=== PATIENT | female | born 1960 | race Caucasian/White ===

== ENCOUNTER 2018-06-11 06:45 | Observation (INO) | payer SELFPAY ==
[2018-06-11 07:25] LABS: #Eosinphils 0.2 thou/uL (0.0-0.7); #Lymphocytes 1.3 thou/uL (1.20-3.40); #Monocytes 0.2 thou/uL (0.11-0.59); #Neutrophils 2.3 thou/uL (1.40-6.50); %Basophils 0.2 % (0.0-1.0); %Eosinophils 4.9 % (0.0-10.0); %Lymphocytes 32.2 % (21.0-51.0); %Monocytes 5.9 % (0.0-10.0); %Neutrophils 56.8 % (42.0-75.0); Hemoglobin 11.9 g/dL (12.0-16.0); Mean Corpuscular HGB CONC 32.7 g/dL (32.0-36.0); Mean Corpuscular Hemoglobin 29.9 pg (27.0-31.0); Mean Corpuscular Volume 91.4 fL (78.0-98.0); Mean Platelet Volume 7.4 fL (7.4-10.4); Platelet Count 152 thou/uL (130-400); RBC Distribution Width 13.2 % (11.5-14.5); Red Blood Cell (RBC) Count 3.98 mill/uL (4.20-5.40)
--- NOTE | 2018-06-11 07:46 | RAD ---
CHEST 1 VIEW: Date: 06/11/18 INDICATION: Chest pain. COMPARISON: None. FINDINGS: Lungs are clear. Cardiomediastinal silhouette is within normal limits. No acute osseous abnormality i s evident. IMPRESSION: No acute cardiopulmonary abnormality. POS: JULIETTE
[2018-06-11 07:47] LABS: ALT (SGPT) 45 U/L (8-55); AST (SGOT) 42 U/L (5-34); Albumin 3.6 g/dL (3.5-5.0); Alkaline Phosphatase 56 U/L (40-150); Anion Gap 13 mmol/L (10-20); BUN (Urea Nitrogen) 15 mg/dL (9.8-20.1); Bilirubin, Total 0.4 mg/dL (0.2-1.2); CK (CPK) 51 U/L (29-168); Calc. Creatinine Clearance 0 mL/min (70-130); Carbon Dioxide 21 mmol/L (22-29); Chloride 109 mmol/L (98-107); Estimated GFR-MDRD 67; Globulin 3.2 g/dL (2.4-3.5); Glucose 137 mg/dL (70-105); Potassium 4.2 mmol/L (3.5-5.1); Protein, Total 6.8 g/dL (6.0-8.3); Sodium 139 mmol/L (136-145)
[2018-06-11 07:50] LABS: CKMB 1.2 ng/mL (0-6.6); Troponin I Less than 0.010 ng/mL (< 0.028)
[2018-06-11] MEDS ORDERED: Nitroglycerin 0.4 MG TAB (25 Tab Bottle) ONE (09:05)
--- NOTE | 2018-06-11 09:29 | CT ---
CT PULMONARY ANGIOGRAM WITH IV CONTRAST AND 3D POSTPROCESSING: Date: 06/11/18 HISTORY: Chest pain and shortness of breath. Dizziness. Nausea. Patient also reports a history of uterine canc er. FINDINGS: There is good contrast opacification of the pulmonary arterial vasculature without filling defects to suggest pulmonary embolism. Thoracic aorta is also well opacified without aneurysm or dissection. No pleural or pericardial effusions are seen. No pneumothoraces or focal areas of consolidation identif ied. There is a 4.0 mm nodule in the posterior aspect of the left upper lobe (image 35, series 3). Th ere are mild dependent changes in the lung bases. There are mild degenerative changes in the spine. A hiatal hernia is present. IMPRESSION: 1. No CT evidence of pulmonary embolism. 2. 4.0 mm left upper lobe lung nodule. A follow-up CT scan of the chest without contrast is recommen ded in 3 months. 3. Hiatal hernia. CODE T. CODE LN. POS: OFF
--- NOTE | 2018-06-11 09:49 | RAD ---
RADIOGRAPH CHEST 1 VIEW: Supine DATE: 06-11-18 TIME: 8:28 A.M. HISTORY: 58-year-old female status post central line placement. FINDINGS: There is no air space density or pulmonary edema. The lateral costophrenic angles are sharp. Supine positioning makes this study insensitive for pneumothorax detection. The only interval change compare d to 06-11-18 at 6:56 a.m. is a new right IJ central line with distal tip overlying the right atrium. IMPRESSION: 1. No acute pulmonary findings. 2. Status post right internal jugular central venous catheter placement with distal tip overlying the right atrium. godwin POS: QUINN
[2018-06-11 10:36] LABS: Troponin I Less than 0.010 ng/mL (< 0.028)
[2018-06-11] MEDS ORDERED: ISOVUE-370 76%-LOCM 1 ML ONE (11:59)
[2018-06-11 13:36] LABS: Troponin I Less than 0.010 ng/mL (< 0.028)
[2018-06-11] MEDS ORDERED: Acetaminophen 325 MG TAB PO PRN (14:31)
[2018-06-11] MEDS ORDERED: Ondansetron ODT 4 MG TAB SL PRN (14:31)
[2018-06-11] MEDS ORDERED: Ondansetron PF 4 MG/2 ML Vial IVP PRN ×2 (14:31→16:59)
[2018-06-11 14:32] VITALS: BMI 27.9
[2018-06-11] MEDS ORDERED: hydrALAZINE 20 MG/ML VIAL SLOW IVP PRN (16:59)
[2018-06-11] MEDS ORDERED: Acetaminophen 500 MG TAB PO PRN (16:59)
[2018-06-11] MEDS ORDERED: Ondansetron ODT 4 MG TAB PO PRN (16:59)
[2018-06-11] MEDS: Ketorolac Tromethamine 30 MG/ML VIAL IVP SCH (17:26)
[2018-06-11] MEDS: Famotidine 20 MG TAB PO SCH (19:59)
[2018-06-12] MEDS: Ketorolac Tromethamine 30 MG/ML VIAL IVP SCH ×3 (00:09→11:51)
[2018-06-12 07:03] LABS: ALT (SGPT) 54 U/L (8-55); AST (SGOT) 58 U/L (5-34); Albumin 3.3 g/dL (3.5-5.0); Alkaline Phosphatase 58 U/L (40-150); Anion Gap 10 mmol/L (10-20); BUN (Urea Nitrogen) 15 mg/dL (9.8-20.1); Bilirubin, Total 0.5 mg/dL (0.2-1.2); Calc. Creatinine Clearance 90 mL/min (70-130); Calcium 8.8 mg/dL (7.8-10.44); Carbon Dioxide 26 mmol/L (22-29); Chloride 106 mmol/L (98-107); Estimated GFR-MDRD 67; Glucose 87 mg/dL (70-105); Potassium 4.6 mmol/L (3.5-5.1); Protein, Total 6.3 g/dL (6.0-8.3); Sodium 137 mmol/L (136-145)
[2018-06-12 07:34] LABS: Hemoglobin 11.6 g/dL (12.0-16.0); Mean Corpuscular HGB CONC 34.2 g/dL (32.0-36.0); Mean Corpuscular Volume 90.7 fL (78.0-98.0); Mean Platelet Volume 7.6 fL (7.4-10.4); Platelet Count 172 thou/uL (130-400); RBC Distribution Width 13.1 % (11.5-14.5); Red Blood Cell (RBC) Count 3.74 mill/uL (4.20-5.40); White Blood Cell (WBC) Count 3.9 thou/uL (4.8-10.8)
[2018-06-12 08:20] LABS: Band 2 % (5-11); Eosinophils 8 % (0-10); Lymphocytes 36 % (21-51); MDiff Complete? YES; Monocytes 2 % (0-10); Neutrophil 50 % (42-75); RBC Morphology Normal; Reactive Lymphocytes 2 % (0-10)
[2018-06-12] MEDS: Famotidine 20 MG TAB PO SCH (08:52)
[2018-06-12] MEDS ORDERED: Lisinopril 20 MG TAB PO SCH (09:00)
[2018-06-12] MEDS ORDERED: Aspirin 81 mg Enteric Coated Tablet PO SCH (09:00)
[2018-06-12 12:25] VITALS: BP 166/80; TEMP 98
--- NOTE | 2018-06-14 18:31 | DIS ---
DATE OF ADMISSION: 06/11/2018 DATE OF DISCHARGE: 06/12/2018 DISCHARGE DIAGNOSES: 1. Chest pain, musculoskeletal in origin. 2. Hypertension, labile. 3. Chronic normocytic anemia. CONSULTATIONS: None. PERTINENT LAB AND X-RAY FINDINGS: Basic metabolic profile within normal limits. AST ranged between 42 to 58 and ALT ranged between 45 to 54. Troponin I negative x3. CBC showed a hemoglobin ranging between 11.6 to 11.9 and MCV 91. D-dimer 0.84. Portable chest x-ray dated 06/11/2018, showed no acute cardiopulmonary process. CT angiogram of the chest dated 06/11/2018, showed no evidence for pulmonary embolus. A 4 mm left upper lobe nodule noted. Hiatal hernia. HOSPITAL COURSE: The patient was observed on the telemetry unit after initially presenting with left-sided chest pain. Exam findings showed point tenderness along the anterior lower rib cage with reproducible symptoms consistent with the patient's presentation. Serial cardiac biomarkers were negative x3 and telemetry monitoring showed sinus mechanism without acute arrhythmia or dysrhythmia. The patient was treated with IV Toradol and supportive management with overall improvement and symptomatology. Overall, the patient remained clinically stable during the hospital course. I have examined and discussed followup instructions with the patient at the time of discharge who verbalized understanding and in agreement. The patient overall clinically stable and ready for discharge on 06/12/2018. DISCHARGE MEDICATIONS: 1. Enteric-coated aspirin 81 mg 1 tab p.o. daily. 2. Lisinopril 40 mg p.o. daily. 3. Metoprolol-XL 100 mg p.o. b.i.d. FOLLOWUP: The patient will follow up with her primary care provider when establishing care in the [place] area after discharge. CONDITION ON DISCHARGE: Stable. ACTIVITY: Ad yariel. DIET: Heart healthy. CODE STATUS: Full. DISPOSITION: Home on 06/12/2018. Job ID: [id number]
--- NOTE | 2018-06-14 19:07 | HP ---
PRIMARY CARE PROVIDER: CHIEF COMPLAINT: Chest pain. HISTORY OF PRESENT ILLNESS: This is a 58-year-old female, who presents to [facility] Emergency Department and transferred from [facility], where the patient is a current resident. The patient admitted to left lower chest wall pain, which began in the last 24 to 48 hours. The patient admitted to some left arm discomfort worse when rotating her torso and walking up stairs. The patient had some associated dizziness, nausea and shortness of breath. The patient denied any documented fever, chills, vomiting or diarrhea. The patient denied any recent increased activity level, recent trauma, injury, or increasing cough. The patient denied any known personal history of coronary artery disease. The patient initially stated that the pain was 5/10, sharp in the lower left chest wall area. The patient did not take any home remedies for relief of her symptoms. In the emergency room, the patient underwent general evaluation, including chest imaging, which was unremarkable. The patient received sublingual nitroglycerin and aspirin 324 mg and referred to the Hospitalist Service for admission. PAST MEDICAL HISTORY: 1. Polysubstance abuse with history of IV drug use. 2. Questionable history of coronary artery disease. 3. Hypertension, treated. PAST SURGICAL HISTORY: 1. Status post right arm tumor removal. 2. Status post left knee surgery. 3. Status post hysterectomy. CURRENT MEDICATIONS: 1. Lisinopril 40 mg p.o. daily. 2. Metoprolol 100 mg p.o. b.i.d. 3. Enteric-coated aspirin 81 mg daily. ALLERGIES: TO PENICILLIN. FAMILY HISTORY: Mother with history of uterine cancer. SOCIAL HISTORY: The patient currently resides at [facility]. History of polysubstance abuse with IV drug use. Former tobacco use, none currently. No alcohol currently. REVIEW OF SYSTEMS: , otherwise negative except as stated per HPI. PHYSICAL EXAMINATION: VITAL SIGNS: On admission, blood pressure 140/86, pulse 71, respiratory rate 20, temperature 97 degrees Fahrenheit, and O2 saturation 97% on room air. GENERAL APPEARANCE: This is a 58-year-old female, alert and oriented x3, pleasant, conversant, and in no acute distress. HEENT: Pupils are equal, round and reactive to light and accommodation. Extraocular muscles were intact. No scleral icterus. No conjunctival injection. Nares patent. OP is clear. Teeth in fair repair. NECK: Supple. No cervical adenopathy. No thyromegaly. No carotid bruits. Right internal jugular central venous catheter in place. No meningeal signs appreciated. CHEST: Lungs are clear to auscultation bilaterally. CARDIOVASCULAR: S1 and S2 without noted murmur, rub or gallop. Positive tenderness to palpation of the anterior and lateral lower chest wall at the costal margin. No discoloration or ecchymosis noted. ABDOMEN: Rounded, soft, nontender and nondistended. Bowel sounds are positive in all four quadrants. There is no hepatosplenomegaly. No abdominal bruits. No rebound or guarding appreciated. EXTREMITIES: Warm and dry with fair turgor. No clubbing, cyanosis or asymmetric edema appreciated. Pulses palpable distally at the dorsalis pedis, posterior tibial, and popliteal arteries bilaterally. Capillary refill is less than 2 seconds. NEUROLOGIC: Cranial nerves 2 through 12 are grossly intact. No focal or lateralizing signs appreciated. PERTINENT LAB AND X-RAY FINDINGS: Sodium 139, potassium 4.2, chloride 109, CO2 of 21. BUN 15, creatinine 0.86. Glucose 137, calcium 9.0. AST 42, ALT of 45, alkaline phosphatase 56. Total CK of 51. Troponin I negative x3. CBC showed a white blood cell count of 4.0, hemoglobin 12, and hematocrit 36, and platelet count 152. D-dimer 0.84. Portable chest x-ray dated 06/11/2018, showed no acute cardiopulmonary process. CT angiogram of the chest dated 06/11/2018, showed no evidence for acute pulmonary embolus. A 4-mm left upper lobe nodule noted. Hiatal hernia. EKG dated 06/11/2018, by my interpretation shows sinus mechanism with heart rates in the 80s. Attenuated R-waves noted in the precordial leads. No acute ST-T wave changes appreciated. ASSESSMENT AND PLAN: 1. Chest pain. The patient will be observed on the telemetry unit. Exam findings consistent with musculoskeletal origin of chest pain. We will continue supportive management. Cardiac biomarkers negative x3. Trial of Toradol 30 mg IV every 6 hours. General supportive management. 2. Hypertension. Resume home antihypertensive regimen and monitor clinical response. 3. Coronary artery disease. Question of coronary artery disease without medical records for review. We will continue supportive management. No current evidence to suggest acute coronary syndrome. Resume aspirin 81 mg daily. 4. Polysubstance abuse. Stable currently. We will transfer back to [facility] on discharge. 5. Prophylaxis. Sequential compression devices while in bed. Pepcid 20 mg p.o. b.i.d. 6. Code status is full. Surrogate medical decision maker is the patient's daughter. Job ID: [id number]
--- NOTE | 2018-06-15 14:59 | EKG ---
Test Reason : Blood Pressure : / mmHG Vent. Rate : 084 BPM Atrial Rate : 084 BPM P-R Int : 140 ms QRS Dur : 068 ms QT Int : 378 ms P-R-T Axes : 068 019 037 degrees QTc Int : 446 ms Normal sinus rhythm Septal infarct , age undetermined Abnormal ECG Confirmed by MARIANO MACKENZIE ([id number]), editor index BECCA ELIZONDO ([id number]) on 06/15/2018 2:58:40 PM Referred By: Confirmed By:MARIANO MACKENZIE
== END 2018-06-12 15:01 | disposition home or self-care (01) ==
LOC: ERS 06:45 → ERHOLD 09:11 → 2SW 14:24
PROVIDERS: ADMIT Family Medicine; ATTEND Family Medicine
DX: R07.89 Other chest pain (principal); I10 Essential (primary) hypertension; D64.9 Anemia, unspecified; F19.11 Other psychoactive substance abuse, in remission; Z79.82 Long term (current) use of aspirin; Z79.899 Other long term (current) drug therapy; Z87.891 Personal history of nicotine dependence
CPT/HCPCS: 36415; 36556; 71045; 71275; 80053; 82553; 84484; 85007; 85025; 85027; 85379; 93005; 96374; 96376; G0378; J1885